=== PATIENT | female | born 1965 | race Caucasian/White ===

== ENCOUNTER 2018-04-23 08:35 | Emergency (ER) | payer SELFPAY ==
[~2018-04-23] VITALS: Ht 165.1 cm; Wt 69.4 kg
--- NOTE | 2018-04-23 08:41 | NUR ---
PT BIB [facility] C/O HEADACHE, NAUSEA/VOMITING S/P INTERNATIONAL FLIGHT LAST NIGHT. PT DENIES RECENT TRAUMA. NO NEURO DEFICITS NOTED. NIHSS 0. RESP EVEN UNLABORED. SKIN WARM DRY. PERRLA. IN ER BED 10 ON MONITOR.
--- NOTE | 2018-04-23 08:45 | NUR ---
PT REPORTS SHE IS MENOPAUSAL
[2018-04-23] MEDS ORDERED: IV NS 0.9% 500 ML BAG IV ONE (09:00)
[2018-04-23] MEDS ORDERED: PROCHLORPERAZINE EDISYLATE 10 MG/2 ML VIAL IV ONE (09:00)
[2018-04-23 09:15] LABS: BASOPHILS % (AUTO) 0.3 % (0.0-2.0); EOSINOPHILS % (AUTO) 1.5 % (0.0-6.0); HEMATOCRIT 42 % (33-45); HEMOGLOBIN 13.7 g/dL (11.5-14.8); LYMPHOCYTES # (AUTO) 1.5 /CMM (0.8-4.8); LYMPHOCYTES % (AUTO) 19.3 % (20.0-44.0); MEAN CORPUSCULAR HGB CONC 33 g/dl (31.0-36.0); MEAN CORPUSCULAR VOLUME 88 fL (82-100); MONOCYTES # (AUTO) 0.4 /CMM (0.1-1.30); MONOCYTES % (AUTO) 4.9 % (2.0-12.0); NEUTROPHILS # (AUTO) 5.9 /CMM (1.8-8.9); PLATELET COUNT (AUTO) 287 /CMM (150-450); RDW COEFFICIENT OF VARIATION 13.5 (11.5-15.0); RED BLOOD CELL COUNT(AUTO) 4.73 MIL/uL (4.0-5.2); WHITE BLOOD COUNT (AUTO) 7.9 K/uL (4.3-11.0)
[2018-04-23] MEDS ORDERED: PROCHLORPERAZINE EDISYLATE 10 MG/2 ML VIAL ONE (09:16)
[2018-04-23 09:26] LABS: CALCIUM, SERUM 9.6 mg/dL (8.5-10.1); CREATININE 0.7 mg/dL (0.6-1.3); POTASSIUM 3.6 mmol/L (3.5-5.1)
[2018-04-23 09:30] LABS: INR 0.99 (0.87-1.13)
[2018-04-23] MEDS ORDERED: KETOROLAC TROMETHAMINE INJ 30 MG/ML VIAL ONE (09:42)
[2018-04-23] MEDS ORDERED: LORAZEPAM INJ 2 MG/ML VIAL ONE (09:43)
[2018-04-23] MEDS ORDERED: KETOROLAC TROMETHAMINE INJ 30 MG/ML VIAL IV ONE (10:00)
[2018-04-23] MEDS ORDERED: LORAZEPAM INJ 2 MG/ML VIAL IV ONE (10:00)
--- NOTE | 2018-04-23 10:16 | NUR ---
RESTING QUIETLY, NAD NOTED, VSS. AWAITING HER TO PICK HER UP.
--- NOTE | 2018-04-23 10:29 | NUR ---
IV removed. Catheter intact and site benign. Pressure and 4x4 applied to site. No bleeding noted. Patient discharged to home in stable condition. Written and verbal after care instructions given. Patient verbalizes understanding of instruction. ambulatory steady gait.
[2018-04-23 10:30] VITALS: BP 129/82
== END 2018-04-23 10:31 | disposition home or self-care (01) ==
LOC: ER 08:38
DX: G43.909 Migraine, unspecified, not intractable, without status migrainosus (principal); R11.2 Nausea with vomiting, unspecified; I10 Essential (primary) hypertension
CPT/HCPCS: 36415; 70450; 80048; 85025; 85730; 96374; 96375; 99285; A4606; J0780; J1885; J2060; J7040; Z7610